=== PATIENT | male | born 1965 | race Caucasian/White ===

== ENCOUNTER 2017-02-26 07:19 | Inpatient (IN) | payer BC, OTHER ==
[~2017-02-26] VITALS: Ht 180.3 cm; Wt 83.9 kg
[2017-02-28 02:00] VITALS: BP 114/67; TEMP 98
--- NOTE | 2017-02-28 02:00 | NUR ---
PRE-ADMISSION PATIENT SEEN IN INTAKE. PATIENT ALERT AND ORIENTED X 4. RESPIRATION EVEN AND UNLABORED . PATIENT STATES HE'S ALLERGIC TO POLLEN AND NO ALLERGY TO FOOD.VS CHECK DONE . VS BP- 114/67 P-102 T-98.0 R-17 PA-6/10 BACK PAIN. SpO2 AT 94% ON RA. PATIENT AMBULATORY. PATIENT NOTED ANXIOUS. WILL CONTINUE ADMISSION PROCESS.
[2017-02-28] MEDS ORDERED: LORAZEPAM 2 MG/1 ML VIAL IM PRN (02:15)
[2017-02-28] MEDS ORDERED: ACETAMINOPHEN 325 MG TABLET PO PRN (02:15)
[2017-02-28] MEDS ORDERED: diphenhydrAMINE 50 MG CAPSULE PO PRN (02:15)
[2017-02-28] MEDS ORDERED: IBUPROFEN 400 MG TABLET PO PRN (02:15)
[2017-02-28] MEDS ORDERED: LOPERAMIDE HCL 2 MG CAPSULE PO PRN ×2 (02:15)
[2017-02-28] MEDS ORDERED: LORAZEPAM 1 MG TABLET PO PRN ×2 (02:15)
[2017-02-28] MEDS ORDERED: CLONIDINE HCL 0.1 MG TABLET PO PRN (02:15)
[2017-02-28] MEDS ORDERED: MAG HYDROX/AL HYDROX/SIMETH 30 ML LIQUID UDC PO PRN (02:15)
[2017-02-28] MEDS ORDERED: HYDROXYZINE PAMOATE 25 MG CAPSULE PO PRN (02:15)
[2017-02-28] MEDS ORDERED: MIRALAX 17 GM POWD.PACK PO PRN (02:15)
[2017-02-28] MEDS ORDERED: ONDANSETRON 4 MG/2 ML VIAL IM PRN (02:15)
[2017-02-28] MEDS ORDERED: THIAMINE HCL 200 MG/2 ML VIAL IM ONE (02:15)
[2017-02-28] MEDS ORDERED: DICYCLOMINE HCL 20 MG TABLET PO PRN (02:15)
[2017-02-28] MEDS ORDERED: BUPRENORPHINE HCL 2 MG TAB.SUBL SL PRN (02:15)
[2017-02-28] MEDS ORDERED: MAGNESIUM HYDROXIDE 30 ML LIQUID UDC PO PRN (02:15)
--- NOTE | 2017-02-28 02:15 | NUR ---
ADMISSION NOTE PATIENT IN THE UNIT AT THIS TIME. PATIENT IS A 51 YEAR OLD MALE [facility]IOID DEPENDENCE. BODY CHECK DONE. SKIN NOTED WITH ABRASION WITH SCABS ON RIGHT ARM. NO BLEEDING NOTED, APPEARS TO BE HEALING. PATIENT NOTED WITH NON- PRODUCTIVE COUGH. LUNGS CLEAR AND BOWEL SOUNDS ACTIVE. ABDOMEN SOFT AND NON-DISTENDED. HEIGHT IS 5'11 AND WEIGHT IS 185 LBS. UDS NOT YET PROVIDED. PATIENT REQUESTED TO BE FULL CODE AND ON REGULAR DIET. 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 PATIENT IS THE SOURCE OF INFORMATION . PATIENT'S DRUG OF CHOICE ARE FF: 1.ALCOHOL (VODKA)-SINCE 13 YEARS OLD. DRINKS 1 PINT OF VODKA DAILY FOR 1 YEAR AND 2 MONTHS. LAST DRINK WAS 12 PACK OF BEERS 02/27/17. 2.HYDROCODONE/ACETAMINOPHEN 10/325-SINCE 21 YEARS OLD- TAKES 4 TABS DAILY FOR 2 YEARS. LAST USE WAS 2 TABS ON ON 02/27/17 3.METHAMPHETAMINE IV-SINCE 21 YEARS OLD. PATIENT INJECTS 1 GRAM FOR A YEAR. LAST USE WAS 1 GRAM ON 02/25/17 4.ROXYCODONE - TAKES OCCASIONALLY SINCE 21 YEARS OLD. LAST USE DATE AND AMOUNT "UNABLE TO RECALL" TREATMENT HISTORY 1.[employer] AT [facility] IN 2014 FOR 3 MONTHS PATIENT REPORT PMH OF ANXIETY, DEPRESSION, LIVER CIRRHOSIS , FELL FROM [address]TH FLOOR IN [place] ON December AND RIGHT SHOULDER SURGERY. NO SEIZURE HISTORY . PATIENT 'S PCP IS DR. DEE BRADFORD.PATIENT BROUGHT HOME MEDS , RECONCILED. PATIENT ANXIOUS, COMPLAINING OF BACK PAIN, NOTED WITH SLIGHT TREMORS, HOT AND COLD SWEATS, CHILLS.CIWA 6 AND COWS 5. PATIENT PLACED ON FALL/SEIZURE PRECAUTION. WILL CALL MD AND WILL GIVE DETAIL REPORT. PATIENT ORIENTED TO SURROUNDINGS AND HOW TO USE CALL LIGHT. SAFETY MEASURES IN PLACE. CALL LIGHT IN REACH. WILL CONTINUE TO MONITOR.
[2017-02-28] MEDS: METHOCARBAMOL 750 MG TABLET PO PRN (03:35)
[2017-02-28] MEDS ORDERED: METHOCARBAMOL 750 MG TABLET ONE (03:40)
[2017-02-28] MEDS ORDERED: TRAZODONE HCL50 MG PO (03:55)
[2017-02-28] MEDS ORDERED: DICLOFENAC SODI75 M1 PO (03:55)
[2017-02-28] MEDS ORDERED: NORCO 10-325 T1 EACH PO (03:55)
[2017-02-28] MEDS ORDERED: MELOXICAM15 MG PO (03:55)
[2017-02-28] MEDS ORDERED: BUPROPION XL300 MG PO (03:55)
[2017-02-28] MEDS ORDERED: TIZANIDINE HCL4 MG PO (03:55)
[2017-02-28] MEDS ORDERED: SEROQUEL400 MG PO (03:55)
--- NOTE | 2017-02-28 03:55 | NUR ---
THIAMINE INJECTION AND PRN ROBAXIN ADMINISTRATION PATIENT C/O BACK PAIN 04/20. PRN ROBAXIN GIVEN. WILL MONITOR FOR EFFECTIVENESS. THIAMINE INJECTION GIVEN ON RIGHT DELTOID
[2017-02-28] MEDS ORDERED: CORTIZONE 1028 GM TP (03:56)
[2017-02-28 04:00] VITALS: BP 105/67; TEMP 98.2
--- NOTE | 2017-02-28 04:55 | NUR ---
FILI BABCOCK RE-ASSESSMENT PATIENT IN BED ASLEEP. NO S/S OF DISTRESS. NO FACIAL GRIMACING. WILL CONTINUE TO MONITOR.
--- NOTE | 2017-02-28 07:15 | NUR ---
END OF SHIFT NOTE PATIENT IS A 51 YEAR OLD MALE NEWLY ADMITTED FOR ETOH/OPIOID/METH DEPENDENCE. PATIENT IS FULL CODE, REGULAR DIET AND ALLERGIC TO POLLEN. PATIENT SLEPT 2 HOURS. FLUID INTAKE OF 120 ML. VOIDED X 0 . NO BM. PATIENT PROVIDED O2 AT 2L/MIN FOR O2 SAT 92%. NO SOB. NOTED WITH NON PRODUCTIVE COUGH, LUNG CLEAR. LAST COWS 3 AND CIWA 4. PRN ROBAXIN GIVEN AT 0335 AND THIAMINE INJECTION GIVEN ON RIGHT DELTOID. ENDORSED TO DAY SHIFT NURSE, PERTINENT INFORMATION. ON FALL/SEIZURE PRECAUTION. SAFETY MEASURES IN PLACE. CALL LIGHT IN REACH. WILL CONTINUE TO MONITOR
--- NOTE | 2017-02-28 07:30 | NUR ---
STAR OF SHIFT Rcvd endorsement from night nurse, Client is in bed, he is A/Ox4, he is on O2 2LPM via NC with spO2 @ 97%, he presents with depresses mood, flat affect. He reports abdominal crams, cold chills, and anxiety, tremors felt not observed, he denies any N/V/D or headache. He has PRN medications to manage withdrawal symptoms, taper to help manage symptoms of withdrawal. PRN Robaxin for generalized body aches, noted effective. Last COWS 3 @ 0400. He has a linear dry scar on R F/A no tx needed. Seizure precaution. Side rails x 2 up/padded. Call light within reach. Will continue plan of care.
[2017-02-28 08:35] VITALS: BP 111/63; TEMP 97.3
[2017-02-28] MEDS ORDERED: TUBERCULIN,PURIF.PROT.DERIV. 5 TU/0.1 ML TEST ID ONE (09:00)
[2017-02-28] MEDS: MULTIVITAMINS,THERAPEUTIC TABLET PO SCH (09:43)
[2017-02-28] MEDS: FOLIC ACID 1 MG TABLET PO SCH (09:43)
[2017-02-28] MEDS: GABAPENTIN 300 MG CAPSULE PO SCH ×2 (09:43→15:00)
[2017-02-28] MEDS: THIAMINE HCL 100 MG TABLET PO SCH (09:43)
[2017-02-28] MEDS: LORAZEPAM 1 MG TABLET PO SCH ×4 (09:43→22:10)
--- NOTE | 2017-02-28 09:44 | NUR ---
TB TEST ADMINISTERED TO LEFT F/A, CLIENT TOLERATED WELL.
[2017-02-28] MEDS: DICLOFENAC 75 MG TABLET.DR PO SCH ×2 (11:16→18:44)
[2017-02-28 12:55] VITALS: BP 113/74; TEMP 98.5
--- NOTE | 2017-02-28 13:45 | NUR ---
Ativan 2mg held, client is too sedated, R 16, even and non-labored. Dr. Bennett notified.
[2017-02-28 16:55] VITALS: BP 113/81; TEMP 98.5
--- NOTE | 2017-02-28 19:15 | NUR ---
START OF SHIFT Received 51 year old male patient admitted on 02/28/17 for ETOH, Hydrocodone, Methamphetamine and occasional use of Roxycodone. Pt reports a PMHx of anxiety, depression, liver cirrhosis (3 years ago) and right shoulder surgery. He reports drinking alcohol ( vodka) 1 pint daily for 1.5 years. Last dose was 12 pack of beer on 02/27/17. Hydrocodone 10/325 mg (4 tabs) daily for 2 years. Last dose 2 tabs on 02/27/17. Methamphetamine IV 1 gram daily for 1 year. Last dose was 1 gram on 02/25/17. And Roxycodone ocasionally. Pt unable to recall. Pt denies history of seizure. Pt is receiving 5 day Ativan taper and tolerating well. Per endorsement, pt's SpO2 decreases while pt is asleep. Pt with order for O2 therapy. Pt is alert and oriented x4. Breathing is even and unlabored. Pt is safe with bed locked in lowest position, side rails up x2 and call light within reach. Will continue to monitor.
--- NOTE | 2017-02-28 19:26 | NUR ---
END OF SHIFT Endorsed to incoming nurse, client is in bed, he is A/Ox4. He reports cold chills, and anxiety, tremors felt not observed, he denies any N/V/D or headache. He started 5 day Ativan taper, tolerating well. Last COWS 4, CIWA 7 @ 0400. He has a linear dry scar on R F/A no tx needed. Adequate intake and output. Seizure precaution. Side rails x 2 up/padded. Call light within reach. Will continue plan of care.
[2017-02-28 20:00] VITALS: BP 107/82; TEMP 98
[2017-02-28] MEDS ORDERED: GABAPENTIN 300 MG CAPSULE PO SCH (21:00)
[2017-02-28] MEDS: TRAZODONE 50 MG TABLET PO PRN (22:15)
--- NOTE | 2017-02-28 22:15 | NUR ---
PRN TRAZODONE Pt reports inability to fall asleep. PRN Trazodone administered as ordered. Breathing even and unlabored, safety measures in place. Will monitor effectiveness.
[2017-02-28] MEDS: ONDANSETRON ODT 4 MG TAB.RAPDIS SL PRN (22:40)
--- NOTE | 2017-02-28 22:40 | NUR ---
PRN ZOFRAN Pt complains of nausea with no episode of vomiting. PRN Zofran administered as ordered. Breathing is even and unlabored, safety measures in place. Will monitor effectiveness.
--- NOTE | 2017-02-28 23:15 | NUR ---
PRN TRAZODONE REASSESSMENT PRN medication effective. Pt lying comfortably in bed with eyes closed and is noted to be asleep. Respirations 16, breathing even and unlabored. Safety measures in place. Will monitor.
--- NOTE | 2017-02-28 23:40 | NUR ---
PRN ZOFRAN REASSESSMENT PRN medication effective. Pt lying in bed with eyes closed noted to be asleep. No facial grimacing noted. Breathing even and unlabored, safety measures in place. Will continue to monitor.
[2017-03-01] VITALS: BP 105/66; TEMP 98
--- NOTE | 2017-03-01 | NUR ---
COWS/CIWA COWS/CIWA deferred. Pt lying in bed with eyes closed noted to be asleep. Breathing is even and unlabored, respirations 16. Safety measures in place. Will monitor.
[2017-03-01 04:00] VITALS: BP 110/63; TEMP 98
--- NOTE | 2017-03-01 04:00 | NUR ---
COWS/CIWA COWS/CIWA deferred. Pt lying in bed with eyes closed noted to be asleep. Breathing is even and unlabored, respirations 16, SpO2: 96% on RA. Safety measures in place. Will monitor.
--- NOTE | 2017-03-01 07:16 | NUR ---
END OF SHIFT Pt is a 51 year old male patient admitted on 02/28/17 for ETOH, Hydrocodone, Methamphetamine and occasional use of Roxycodone. Pt reports a PMHx of anxiety, depression, liver cirrhosis (3 years ago) and right shoulder surgery. Pt is currently receiving 5 day Ativan taper and tolerating well. At 2215 he received PRN Trazodone, at 2240 he received PRN Zofran. He slept a total of 9hrs, Intake: 3665 mL, Void: x1, BM: x1, COWS: 4, CIWA: 6. Pt remains alert and oriented x4. Breathing is even and unlabored. Pt is safe with bed locked in lowest position, side rails up x2 and call light within reach. Endorsed to oncoming shift.
[2017-03-01 08:00] VITALS: BP 103/69; TEMP 98
--- NOTE | 2017-03-01 08:02 | NUR ---
STAR OF SHIFT Client is in bed, he is A/Ox4, he presents with depresses mood, flat affect. He is fully ambulatory reports sweats, cold chills, restless legs and abdominal crams, tremors felt not observed, he denies any N/V/D. He denies any hallucinations or SI/HI. Rcvd endorsement from night nurse indicating that last night client's gait was unsteady, PRN Trazodone for inability to sleep, noted effective he slept 9hrs. He is on day 2 of 5 of Ativan taper to facilitate detox treatment. Encouraged fluid intake as tolerated. Encourage to attend group therapy improve coping skills. Last COWS 4/CIWA 6 @ 1999. Client's linear dry scar on R F/A intact. Seizure precaution. Side rails x 2 up/padded. Call light within reach. Will continue plan of care.
[2017-03-01] MEDS: MULTIVITAMINS,THERAPEUTIC TABLET PO SCH (08:32)
[2017-03-01] MEDS: DICLOFENAC 75 MG TABLET.DR PO SCH ×2 (08:32→17:08)
[2017-03-01] MEDS: GABAPENTIN 300 MG CAPSULE PO SCH ×3 (08:32→21:28)
[2017-03-01] MEDS: FOLIC ACID 1 MG TABLET PO SCH (08:32)
[2017-03-01] MEDS: THIAMINE HCL 100 MG TABLET PO SCH (08:32)
[2017-03-01] MEDS: LORAZEPAM 1 MG TABLET PO SCH ×3 (08:32→21:27)
[2017-03-01] MEDS: ONDANSETRON ODT 4 MG TAB.RAPDIS SL PRN (12:16)
--- NOTE | 2017-03-01 12:16 | NUR ---
PRN Zofran Client reports an episode of emesis and intermittent nausea, he denies any [place]. Zofran 4mg SL administered. Offered saltine crackers and felicita ann. Call light within reach. Will continue to monitor.
[2017-03-01 12:25] VITALS: BP 135/95; TEMP 98
[2017-03-01] MEDS ORDERED: Medication Not On Formulary EA (Bupropion Hcl (Bupropion Xl) 1 TAB) PO SCH (12:30)
[2017-03-01] MEDS: buPROPion XL 150 MG TAB.SR.24H PO SCH (13:14)
--- NOTE | 2017-03-01 13:14 | NUR ---
PRN Imodium 4mg Client reports loose stool x 2, Imodium 4mg PO administered. Encouraged to increase fluid intake as tolerated. Ritika ann and water at bedside. Call light within reach.
--- NOTE | 2017-03-01 13:16 | NUR ---
Reassessment PRN Gordy Client states "No more vomiting and I feel a lot better from the nausea, thank you." Zofran 4mg effective. Call light within reach. Will continue to monitor.
--- NOTE | 2017-03-01 13:35 | NUR ---
Client was encouraged to continue to come to groups. He attended morning group but reports he feels nauseous at the moment but will do his best.
--- NOTE | 2017-03-01 14:14 | NUR ---
Reassessment PRN Imodium 4mg Client denies any more bowel movements. Imodium 4mg effective. Encouraged to increase fluid intake as tolerated. Call light within reach.
[2017-03-01 16:55] VITALS: BP 125/83; TEMP 98.4
--- NOTE | 2017-03-01 19:15 | NUR ---
START OF SHIFT Received 51 year old male patient admitted on 02/28/17 for ETOH, Hydrocodone, Methamphetamine and occasional use of Roxycodone. Pt reports a PMHx of anxiety, depression, liver cirrhosis (3 years ago) and right shoulder surgery. He reports drinking alcohol ( vodka) 1 pint daily for 1.5 years. Last dose was 12 pack of beer on 02/27/17. Hydrocodone 10/325 mg (4 tabs) daily for 2 years. Last dose 2 tabs on 02/27/17. Methamphetamine IV 1 gram daily for 1 year. Last dose was 1 gram on 02/25/17. And Roxycodone occasionally. Pt unable to recall. Pt denies history of seizure. Pt is receiving 5 day Ativan taper and tolerating well. Per endorsement, pt received PRN Zofran, Imodium and Tylenol. Pt is alert and oriented x4. Breathing is even and unlabored. Pt is safe with bed locked in lowest position, side rails up x2 and call light within reach. Will continue to monitor.
--- NOTE | 2017-03-01 19:16 | NUR ---
PRN Tylenol 650mg Client reports L upper toothache, 03/21. Tylenol 650mg Po administered. Primary notice client jamming toothbrush in his mouth attempting to self remove painful tooth. Ask client to refrain from hurting himself with the toothbrush, he promised to stop. Charge nurse and incoming nurse notified. Incoming nurse to reassess effectiveness of medication. Call light within reach.
--- NOTE | 2017-03-01 19:17 | NUR ---
END OF SHIFT Endorsed to incoming nurse, client is in bed, he is A/Ox4. He reports left upper toothache /, Tylenol administered and primary nurse to reassess. He presents with anxious mood, tremors felt not observed, he denies any N/V/D or headache. PRN Zofran for emesis x 1 and Imodium for diarrhea, noted effective. He is on 2nd of 5 day Ativan taper, tolerating well. Last COWS 3, CIWA 3 @ 1600. He has a linear dry scar on R F/A no tx needed. Adequate intake and output. Seizure precaution. Side rails x 2 up/padded. Call light within reach. Will continue plan of care.
[2017-03-01 20:00] VITALS: BP 133/80; TEMP 98
--- NOTE | 2017-03-01 20:16 | NUR ---
PRN TYLENOL REASSESSMENT Pt reports tylenol somewhat effective. Pain 4/10. Breathing even and unlabored, safety measures in place. Will continue to monitor.
[2017-03-01] MEDS ORDERED: QUETIAPINE FUMARATE 200 MG TABLET PO SCH (21:00)
[2017-03-01] MEDS ORDERED: LIDOCAINE VISCUS 2% 15 ML UDC MM PRN (21:00)
[2017-03-02] VITALS: BP 115/82; TEMP 98
[2017-03-02 04:00] VITALS: BP 112/62; TEMP 98
--- NOTE | 2017-03-02 04:00 | NUR ---
COWS/CIWA COWS/CIWA deferred. Pt lying in bed with eyes closed noted to be asleep. Breathing is even and unlabored, respirations 16. Safety measures in place. Will continue to monitor.
--- NOTE | 2017-03-02 07:15 | NUR ---
END OF SHIFT Pt is a 51 year old male patient admitted on 02/28/17 for ETOH, Hydrocodone, Methamphetamine and occasional use of Roxycodone. Pt reports a PMHx of anxiety, depression, liver cirrhosis (3 years ago) and right shoulder surgery. Pt is receiving 5 day Ativan taper and tolerating well. Per endorsement, pt received PRN Zofran, Imodium and Tylenol. Pt is alert and oriented x4. Breathing is even and unlabored. Pt is safe with bed locked in lowest position, side rails up x2 and call light within reach. Endorsed to oncoming shift.
[2017-03-02 08:00] VITALS: BP 135/101; TEMP 98.2
--- NOTE | 2017-03-02 08:10 | NUR ---
START OF SHIFT Received pt this AM Aox3. Patient presents restless and anxious. Patient c/o feeling woozy, sweaty, and having body aches. Patient on 5 day Ativan taper. Patient has abrasion to right arm. He slept 8 hours. No PRNs given during the night. COWS 6 CIWA 10 at 0800. Vital signs stable. Patient verbalized wanting to attend groups and activities this shift. Encouraged increase in fluid intake. Will provide safe and supportive environment. Will continue to monitor.
[2017-03-02] MEDS: DICLOFENAC 75 MG TABLET.DR PO SCH ×2 (08:32→17:21)
[2017-03-02] MEDS: FOLIC ACID 1 MG TABLET PO SCH (08:32)
[2017-03-02] MEDS: THIAMINE HCL 100 MG TABLET PO SCH (08:33)
[2017-03-02] MEDS: GABAPENTIN 300 MG CAPSULE PO SCH ×3 (08:33→20:47)
[2017-03-02] MEDS: LORAZEPAM 1 MG TABLET PO SCH ×4 (08:33→20:46)
[2017-03-02] MEDS: MULTIVITAMINS,THERAPEUTIC TABLET PO SCH (08:33)
[2017-03-02] MEDS: buPROPion XL 150 MG TAB.SR.24H PO SCH (08:33)
[2017-03-02 12:00] VITALS: BP 117/90; TEMP 97.9
--- NOTE | 2017-03-02 12:48 | NUR ---
PRN MEDS Viscous Lidocaine given for c/o toothache. Pain 9/10 on pain scale. Will reassess
--- NOTE | 2017-03-02 13:15 | NUR ---
PRN REASSESSMENT Patient reports pain has decreased to 2/10. Will continue to monitor
[2017-03-02 16:00] VITALS: BP 148/92; TEMP 98.3
--- NOTE | 2017-03-02 18:36 | NUR ---
END OF SHIFT Patient continues on 5 day Ativan taper and tolerating well. Patient states his detox meds are effective, but he is feeling more tired than normal. Last COWS 6 CIWA 8. PRN Viscous Lidocaine given for tooth pain with effectiveness. TB test read and was negative. All needs met. Safety measures in place. Patient resting in room calmly with RR even and unlabored and call duran within reach. Will pass shift report to oncoming nurse.
--- NOTE | 2017-03-02 19:30 | NUR ---
START OF SHIFT Pt is a 51 year old male patient admitted on 02/28/17 for ETOH, Hydrocodone, Methamphetamine and occasional use of Roxycodone. Pt reports a PMH of anxiety, depression, liver cirrhosis, and right shoulder surgery. Pt is receiving 5 day Ativan taper and tolerating well. Pt is alert and oriented x4. Breathing is even and unlabored. Pt is safe with bed locked in lowest position, side rails up x2 and call light within reach,will be monitored for safety.
[2017-03-02 20:00] VITALS: BP 133/95; TEMP 98.1
[2017-03-02] MEDS: QUETIAPINE FUMARATE 200 MG TABLET PO SCH (20:46)
[2017-03-03] VITALS: BP 124/81; TEMP 98.6
[2017-03-03 04:00] VITALS: BP 128/89; TEMP 98.1
--- NOTE | 2017-03-03 07:01 | NUR ---
END OF SHIFT Pt is a 51 year old male patient admitted on 02/28/17 for ETOH, Hydrocodone, Methamphetamine and occasional use of Roxycodone. Pt reports a PMH of anxiety, depression, liver cirrhosis, and right shoulder surgery. Pt is receiving 5 day Ativan taper and tolerating well. Pt is alert and oriented x4. Breathing is even and unlabored. No PRN meds given last night.Pt slept 9 hrs,fluid intake was 295 mls,voided x 1 . Pt is safe with bed locked in lowest position, side rails up x2 and call light within reach,will be monitored for safety.
--- NOTE | 2017-03-03 07:39 | NUR ---
Start of shift note; Received report from night nurse. Patient is a 51 year old male admitted on 02/28/17 for ETOH dependence. Patient was placed on a 5 day Ativan taper, no adverse reactions noted. Patient reported history of anxiety, depression, liver cirrhosis, right shoulder surgery. Patient is on full code status, regular diet allergic to pollen. Patient is on fall and seizure precaution. Bed in lowest position, call light within reach. Will continue to monitor patient.
[2017-03-03 08:00] VITALS: BP 130/76; TEMP 97.8
[2017-03-03] MEDS: GABAPENTIN 300 MG CAPSULE PO SCH ×3 (08:01→20:45)
[2017-03-03] MEDS: THIAMINE HCL 100 MG TABLET PO SCH (08:01)
[2017-03-03] MEDS: buPROPion XL 150 MG TAB.SR.24H PO SCH (08:01)
[2017-03-03] MEDS: FOLIC ACID 1 MG TABLET PO SCH (08:01)
[2017-03-03] MEDS: DICLOFENAC 75 MG TABLET.DR PO SCH ×2 (08:01→17:14)
[2017-03-03] MEDS: MULTIVITAMINS,THERAPEUTIC TABLET PO SCH (08:01)
[2017-03-03] MEDS: LORAZEPAM 1 MG TABLET PO SCH ×3 (08:01→20:45)
[2017-03-03 12:00] VITALS: BP 127/72; TEMP 97.8
--- NOTE | 2017-03-03 12:00 | NUR ---
MD communication; Dr. Bennett notified of patient's Hep C result, MD to educate patient.
[2017-03-03 16:00] VITALS: BP 130/98; TEMP 97.9
--- NOTE | 2017-03-03 18:38 | NUR ---
End of shift note; Patient is AOX4. Patient is a 51 year old male admitted on 02/28/17 for ETOH dependence. Patient was placed on a 5 day Ativan taper, no adverse reactions noted. Patient reported history of anxiety, depression, liver cirrhosis, right shoulder surgery. Patient is on full code status, regular diet allergic to pollen. Patient is on fall and seizure precaution. Patient remained compliant with treatment plan. Medications were effective in reducing withdrawal symptoms. Bed in lowest position, call light within reach. Met all needs.
--- NOTE | 2017-03-03 19:30 | NUR ---
START OF SHIFT Pt is a 51 year old male patient admitted on 02/28/17 for ETOH, Hydrocodone, Methamphetamine and occasional use of Roxycodone. Pt reports a PMH of anxiety, depression, liver cirrhosis, and right shoulder surgery. Pt is receiving 5 day Ativan taper and tolerating well. Pt is alert and oriented x4. Breathing is even and unlabored. Patient is on full code status, regular diet allergic to pollen. Patient is on fall and seizure precaution. Pt is safe with bed locked in lowest position, side rails up x2 and call light within reach,will be monitored for safety.
[2017-03-03 20:00] VITALS: BP 133/86; TEMP 98.2
[2017-03-03] MEDS: QUETIAPINE FUMARATE 200 MG TABLET PO SCH (20:45)
[2017-03-04] VITALS: BP 120/82; TEMP 98.3
--- NOTE | 2017-03-04 04:00 | NUR ---
PT REFUSED V/S.COWS/CIWA DEFERRED. PT SEEN SLEEPING COMFORTABLY IN BED.BREATHING IS EVEN AND NON LABORED.NO S/S OF DISTRESS NOTED.WILL BE MONITORED FOR SAFETY.
--- NOTE | 2017-03-04 06:43 | NUR ---
END OF SHIFT Pt is a 51 year old male patient admitted on 02/28/17 for ETOH, Hydrocodone, Methamphetamine and occasional use of Roxycodone. Pt reports a PMH of anxiety, depression, liver cirrhosis, and right shoulder surgery. Pt is receiving 5 day Ativan taper and tolerating well. Pt is alert and oriented x4. Breathing is even and unlabored. Patient is on full code status, regular diet allergic to pollen. Patient is on fall and seizure precaution.No PRN meds given,Pt slept 9 hrs,fluid intake was 1401 mls,voided x 2. Pt is safe with bed locked in lowest position, side rails up x2 and call light within reach,will be monitored for safety.
--- NOTE | 2017-03-04 07:42 | NUR ---
BEGINNING OF SHIFT Patient endorsement report received from aviation project manager nurse, all pertinent information discussed. patient is a 51 year old male admitted on 02/28/2017 with admitting Dx: etoh/opiate dependence. Patient currently on a 5 day Ativan taper as ordered, and is scheduled to begin day 4 of taper. per nights shift patient received no PRN medications. Patient with last cow score of: 1 and last ciwa score of: 1. Patient slept for 9. hours. Patient received awake, alert and oriented x4, educated regarding plan of care for the day and medication regimen. safety measures in place. call light kept with in reach, will continue to monitor.
[2017-03-04] MEDS: THIAMINE HCL 100 MG TABLET PO SCH (08:58)
[2017-03-04] MEDS: buPROPion XL 150 MG TAB.SR.24H PO SCH (08:58)
[2017-03-04] MEDS: DICLOFENAC 75 MG TABLET.DR PO SCH ×2 (08:58→17:13)
[2017-03-04] MEDS: FOLIC ACID 1 MG TABLET PO SCH (08:58)
[2017-03-04] MEDS: GABAPENTIN 300 MG CAPSULE PO SCH ×3 (08:58→21:14)
[2017-03-04] MEDS: MULTIVITAMINS,THERAPEUTIC TABLET PO SCH (08:59)
[2017-03-04] MEDS: LORAZEPAM 1 MG TABLET PO SCH ×2 (08:59→21:15)
[2017-03-04 09:00] VITALS: BP 126/85; TEMP 98.4
[2017-03-04] MEDS ORDERED: CYANOCOBALAMIN 1000 MCG/ML VIAL IM ONE (12:00)
[2017-03-04 13:06] VITALS: BP 130/82; TEMP 98.4
[2017-03-04 17:00] VITALS: BP 149/87; TEMP 98.4
--- NOTE | 2017-03-04 18:51 | NUR ---
END OF SHIFT Patient alert and oriented x4, vital signs stable during shift. Patient with admitting Dx: ETOH/opiate dependence. Patient continues on 5 day Ativan taper as ordered. Continues on day 4 of taper, well tolerated, no ASE noted. 0900 assessment patient presented with: anxiety, barely sweating, c/o chills and mild bone and joint aches with cow score of: 5 and ciwa score of: 2. 1300 assessment patient presented with: anxiety, barely sweating, c/o chills and mild bone and joint aches with cow score of: 5 and ciwa score of: 2. 1700 assessment patient presented with: mild bone and joint aches, and anxiety with cow score of: 2 and ciwa score of: 4. Patient was administered no PRNs Patient encouraged adequate PO fluid intake as tolerated. Encouraged to attend group therapies/sessions to learn new coping skills to prevent relapse, noted attending and participating denies any SI/HI. Safety measures in place. call light kept with in reach. all needs met and rendered. patient endorsed to shiftman nurse, all pertinent information discussed. Addendum: 03/04/17 at 1855 by COOPER REGALADO LVN Patient was administered a one time dose of B12 injection as ordered during shift, well tolerated.
--- NOTE | 2017-03-04 19:15 | NUR ---
START OF SHIFT Received 51 year old male patient admitted on 02/28/17 for ETOH, Hydrocodone, Methamphetamine and occasional use of Roxycodone. Pt reports a PMHx of anxiety, depression, liver cirrhosis (3 years ago) and right shoulder surgery. He reports drinking alcohol ( vodka) 1 pint daily for 1.5 years. Last dose was 12 pack of beer on 02/27/17. Hydrocodone 10/325 mg (4 tabs) daily for 2 years. Last dose 2 tabs on 02/27/17. Methamphetamine IV 1 gram daily for 1 year. Last dose was 1 gram on 02/25/17. And Roxycodone occasionally. Pt unable to recall. Pt denies history of seizure. Pt is currently receiving 5 day Ativan taper and tolerating well. Per endorsement, pt received B12 shot, and did not receive or request PRN medications. Pt is alert and oriented x4. Breathing is even and unlabored. Pt is safe with bed locked in lowest position, side rails up x2 and call light within reach. Will continue to monitor.
[2017-03-04 20:00] VITALS: BP 174/93; TEMP 98.1
[2017-03-04] MEDS: QUETIAPINE FUMARATE 200 MG TABLET PO SCH (21:14)
[2017-03-05] VITALS: BP 122/84; TEMP 98
--- NOTE | 2017-03-05 | NUR ---
COWS/CIWA COWS/CIWA deferred d/t pt lying in bed with eyes closed noted to be asleep. Respirations 16, breathing even and unlabored. Safety measures in place. Will continue to monitor.
--- NOTE | 2017-03-05 04:00 | NUR ---
VITALS REFUSED/ COW, CIWA DEFERRED 0400 vitals refused by pt. COWS and CIWA deferred d/t pt lying in bed with eyes closed, and is asleep and unable to assess. Respirations 16, breathing is even and unlabored. Safety measures in place. Will continue to monitor.
--- NOTE | 2017-03-05 07:07 | NUR ---
END OF SHIFT Pt is a 51 year old male patient admitted on 02/28/17 for ETOH, Hydrocodone, Methamphetamine and occasional use of Roxycodone. Pt reports a PMHx of anxiety, depression, liver cirrhosis (3 years ago) and right shoulder surgery. Pt is currently receiving 5 day Ativan taper and tolerating well. Pt did not receive or request PRN medications. He slept a total of 8 hrs, Intake: 592 mL Void:x2 BM:0 COWS:2, CIWA:3. Pt remains alert and oriented x4. Breathing is even and unlabored. Pt is safe with bed locked in lowest position, side rails up x2 and call light within reach. Endorsed to oncoming shift.
--- NOTE | 2017-03-05 07:08 | NUR ---
Start of Shift Notes: Received patient in his room. Alert and oriented x 4. Verbally responsive. Able to make his needs known. No changes in LOC noted. Breathing even and unlabored. No SOB noted. Skin warm and dry to touch. Abdomen soft and non-distended with (+) BS in all 4 quadrants. No complains of N/V/D or constipation noted. Noted with complains of abdominal cramping. Bladder non-distended. No complains of dysuria noted. Voids independently. Ambulatory ad mitesh with steady gait. Patient is a 51 year old male admitted for ETOH, opiate, meth dependence who was placed on a 5-day Ativan taper as ordered. No adverse reactions noted. Has past medical hx of anxiety, depression, liver cirrhosis, fall, and right shoulder surgery. On fall and seizure precautions. NKDA. FULL CODE. Regular diet. Educated patient on the current plan of care for the day and the medication regimen. Encouraged oral fluid intake and encouraged group participation to learn new skills to prevent relapse. Will continue to monitor closely.
[2017-03-05 08:00] VITALS: BP 146/91; TEMP 98.1
[2017-03-05] MEDS: THIAMINE HCL 100 MG TABLET PO SCH (08:37)
[2017-03-05] MEDS: buPROPion XL 150 MG TAB.SR.24H PO SCH (08:37)
[2017-03-05] MEDS: GABAPENTIN 300 MG CAPSULE PO SCH ×3 (08:37→21:04)
[2017-03-05] MEDS: MULTIVITAMINS,THERAPEUTIC TABLET PO SCH (08:37)
[2017-03-05] MEDS: METHOCARBAMOL 750 MG TABLET PO PRN (08:37)
[2017-03-05] MEDS: FOLIC ACID 1 MG TABLET PO SCH (08:37)
--- NOTE | 2017-03-05 08:37 | NUR ---
Robaxin 750 mg PO given: Patient noted with complains of right shoulder 5/10 pain. Heat packs provided with no help. Medicated patient with Robaxin 750 mg PO as ordered. Will monitor for effectiveness.
[2017-03-05] MEDS: DICLOFENAC 75 MG TABLET.DR PO SCH ×2 (08:51→17:11)
--- NOTE | 2017-03-05 09:37 | NUR ---
Re-assessment: Per patient, PRN Robaxin was effective in reducing his right shoulder pain. PL 12/19.
[2017-03-05 12:00] VITALS: BP 139/92; TEMP 98
[2017-03-05] MEDS ORDERED: Gabapentin PO (12:40)
[2017-03-05] MEDS ORDERED: HYDROXYZINE PAM25 M1 PO (12:40)
[2017-03-05] MEDS ORDERED: ROBAXIN750 MG PO (12:40)
[2017-03-05] MEDS ORDERED: SEROQUEL200 MG PO (12:40)
[2017-03-05] MEDS ORDERED: Acetaminophen PO (12:40)
[2017-03-05] MEDS ORDERED: FAMOTIDINE20 M1 PO (12:40)
[2017-03-05 16:00] VITALS: BP 165/104; TEMP 98.3
--- NOTE | 2017-03-05 17:17 | NUR ---
Clonidine 0.1mg PO given: Patient's BP 165/104. Denies any headache, dizziness, blurred vision, chest pain or chest tightness. Medicated patient with Clonidine 0.1mg PO as ordered. Discouraged smoking. Patient verbalized understanding of risks and consequences but patient still insisted on smoking.
[2017-03-05 18:17] VITALS: BP 145/96
--- NOTE | 2017-03-05 18:17 | NUR ---
Re-assessment: Patient's BP checked. BP 145/96.
--- NOTE | 2017-03-05 18:57 | NUR ---
End of Shift Notes: Patient is a 51 year old male admitted for ETOH/opiate and methamphetamine dependence who was placed on a 5-day Ativan taper that has been completed. Has past medical hx of anxiety, depression and cirrhosis. VS monitored closely q 4 hours. Withdrawal symptoms were closely monitored. Initial CIWA 3. Patient presented with anxiety. Able to be redirected with non-pharmacological interventions. Particpated in group and therapy sessions. Medicated patient with Robaxin 750 mg PO at 0837 for right shoulder pain with help after 1 hour. Clonidine 0.1mg PO was given at 1717 due to elevated BP with help after 1 hour. Patient will be discharging tomorrow. UDS in and resulted. All needs met and attended. Will continue to monitor closely.
--- NOTE | 2017-03-05 19:15 | NUR ---
START OF SHIFT Received 51 year old male patient admitted on 02/28/17 for ETOH, Hydrocodone, Methamphetamine and occasional use of Roxycodone. Pt reports a PMHx of anxiety, depression, liver cirrhosis (3 years ago) and right shoulder surgery. He reports drinking ETOH (vodka) 1 pint daily for 1.5 years. Last dose was 12 pack of beer on 02/27/17. Hydrocodone 10/325 mg (4 tabs) daily for 2 years. Last dose 2 tabs on 02/27/17. Methamphetamine IV 1 gram daily for 1 year. Last dose was 1 gram on 02/25/17. And Roxycodone occasionally. Pt unable to recall. Pt denies history of seizure. Pt completed his 5 day Ativan taper and is scheduled to be DC tomorrow. Per endorsement, pt received PRN clonidine d/t increased BP. PRN medication was effective. Pt is alert and oriented x4. Breathing is even and unlabored. Pt is safe with bed locked in lowest position, side rails up x2 and call light within reach. Will continue to monitor.
[2017-03-05 20:00] VITALS: BP 147/98; TEMP 98.5
[2017-03-05] MEDS: FAMOTIDINE 20 MG TABLET PO SCH (21:04)
[2017-03-05] MEDS: QUETIAPINE FUMARATE 200 MG TABLET PO SCH (21:04)
[2017-03-05] MEDS: TRAZODONE 50 MG TABLET PO PRN (21:29)
--- NOTE | 2017-03-05 21:29 | NUR ---
PRN TRAZODONE Pt complains of inability to fall asleep. PRN Trazodone administered as ordered. Breathing is even and unlabored. Safety measures in place. Will continue to monitor effectiveness.
--- NOTE | 2017-03-05 22:29 | NUR ---
PRN TRAZODONE REASSESSMENT PRN Trazodone effective. Pt lying in bed with eyes closed noted to be asleep. Respirations 16, breathing is even and unlabored. Safety measures in place. Will continue to monitor.
[2017-03-06] VITALS: BP 135/82; TEMP 98.5
--- NOTE | 2017-03-06 04:00 | NUR ---
COWS,CIWA DEFERRED/VITALS REFUSED 0400 vitals refused by pt. COWS and CIWA deferred d/t pt lying in bed with eyes closed, and is asleep. Respirations 16, breathing is even and unlabored. Safety measures in place. Will continue to monitor.
--- NOTE | 2017-03-06 07:30 | NUR ---
END OF SHIFT Pt is a 51 year old male patient admitted on 02/28/17 for ETOH, Hydrocodone, Methamphetamine and occasional use of Roxycodone. Pt completed his 5 day Ativan taper and is scheduled to be DC today (03/06/17) to [facility]. At 2128 he received PRN Trazodone. He slept a total of 6 hrs, Intake: 1150 mL Void:x2 BM:0 COWS: 0, CIWA:1. Pt remains alert and oriented x4. Breathing is even and unlabored. Pt is safe with bed locked in lowest position, side rails up x2 and call light within reach. Endorsed to oncoming shift.
[2017-03-06 08:00] VITALS: BP 137/88; TEMP 98.5
--- NOTE | 2017-03-06 08:21 | NUR ---
Start of Shift Notes: Received patient in his room. Alert and oriented x 4. Verbally responsive. Able to make his needs known. No changes in LOC noted. Breathing even and unlabored. No SOB noted. Skin warm and dry to touch. Abdomen soft and non-distended with (+) BS in all 4 quadrants. No complains of N/V/D or constipation noted. Noted with complains of abdominal cramping. Bladder non-distended. No complains of dysuria noted. Voids independently. Ambulatory ad mitesh with steady gait. Patient is a 51 year old male admitted for ETOH, opiate, meth dependence who was placed on a 5-day Ativan taper as ordered. No adverse reactions noted. Has past medical hx of anxiety, depression, liver cirrhosis, fall, and right shoulder surgery. On fall and seizure precautions. NKDA. FULL CODE. Regular diet. Educated patient on the discharge process. Verbalized understanding. Will continue to monitor closely.
[2017-03-06] MEDS: MULTIVITAMINS,THERAPEUTIC TABLET PO SCH (08:36)
[2017-03-06] MEDS: DICLOFENAC 75 MG TABLET.DR PO SCH (08:36)
[2017-03-06] MEDS: buPROPion XL 150 MG TAB.SR.24H PO SCH (08:37)
[2017-03-06] MEDS: THIAMINE HCL 100 MG TABLET PO SCH (08:37)
[2017-03-06] MEDS: FAMOTIDINE 20 MG TABLET PO SCH (08:37)
[2017-03-06] MEDS: GABAPENTIN 300 MG CAPSULE PO SCH (08:37)
[2017-03-06] MEDS: FOLIC ACID 1 MG TABLET PO SCH (08:37)
[2017-03-06] MEDS: METHOCARBAMOL 750 MG TABLET PO PRN (08:37)
--- NOTE | 2017-03-06 09:40 | NUR ---
Discharged: Patient left the unit at this time in stable condition. PRN Robaxin was given at 0837 with help after 1 hour. Patient denies any s/s of withdrawal. CIWA 0. Discharge instructions were provided to the patient. Education provided regarding his discharge instructions. All clothings, medications and valuables were returned to the patient in stable condition. Picked up by [facility] in stable condition to be transported to [facility].
== END 2017-03-06 09:40 | disposition other institution (70) | DRG 895 ==
LOC: SRC 02-28 01:32
PROVIDERS: ADMIT Internal Medicine; ATTEND Internal Medicine
DX: F10.230 Alcohol dependence with withdrawal, uncomplicated (principal); K85.20 Alcohol induced acute pancreatitis without necrosis or infection; F31.4 Bipolar disorder, current episode depressed, severe, without psychotic features; K70.30 Alcoholic cirrhosis of liver without ascites; F11.23 Opioid dependence with withdrawal; Y90.9 Presence of alcohol in blood, level not specified; F41.9 Anxiety disorder, unspecified; F17.210 Nicotine dependence, cigarettes, uncomplicated; F15.23 Other stimulant dependence with withdrawal; B19.20 Unspecified viral hepatitis C without hepatic coma

== ENCOUNTER 2017-04-29 09:10 | Inpatient (IN) | payer BC, OTHER ==
[~2017-04-29] VITALS: Ht 177.8 cm; Wt 93.0 kg
[~2017-04-29 09:10] MED LIST: Acetaminophen PO; BUPR300T54 PO; DICL75TA5 PO; FAMO20TA8 PO; Gabapentin PO; HYDR-3895 PO; HYDR28GE TP; MELO-107 PO; METH-33 PO; QUET200T PO; QUET400T PO; TIZA4TAB4 PO; TRAZ-144 PO
[2017-04-29] MEDS ORDERED: MAGNESIUM HYDROXIDE 30 ML LIQUID UDC PO PRN (14:45)
[2017-04-29] MEDS ORDERED: HYDROXYZINE PAMOATE 25 MG CAPSULE PO PRN (14:45)
[2017-04-29] MEDS ORDERED: CLONIDINE HCL 0.1 MG TABLET PO PRN (14:45)
[2017-04-29] MEDS ORDERED: ONDANSETRON ODT 4 MG TAB.RAPDIS SL PRN (14:45)
[2017-04-29] MEDS ORDERED: LORAZEPAM 1 MG TABLET PO PRN ×2 (14:45)
[2017-04-29] MEDS ORDERED: BUPRENORPHINE HCL 2 MG TAB.SUBL SL PRN (14:45)
[2017-04-29] MEDS ORDERED: diphenhydrAMINE 50 MG CAPSULE PO PRN (14:45)
[2017-04-29] MEDS ORDERED: MAG HYDROX/AL HYDROX/SIMETH 30 ML LIQUID UDC PO PRN (14:45)
[2017-04-29] MEDS ORDERED: THIAMINE HCL 200 MG/2 ML VIAL IM ONE (14:45)
[2017-04-29] MEDS ORDERED: LOPERAMIDE HCL 2 MG CAPSULE PO PRN ×2 (14:45)
[2017-04-29] MEDS ORDERED: MIRALAX 17 GM POWD.PACK PO PRN (14:45)
[2017-04-29] MEDS ORDERED: LORAZEPAM 2 MG/1 ML VIAL IM PRN (14:45)
[2017-04-29] MEDS ORDERED: ONDANSETRON 4 MG/2 ML VIAL IM PRN (14:45)
[2017-04-29] MEDS ORDERED: DICYCLOMINE HCL 20 MG TABLET PO PRN (14:45)
[2017-04-29] MEDS ORDERED: METHOCARBAMOL 750 MG TABLET PO PRN (14:45)
--- NOTE | 2017-04-29 14:45 | NUR ---
Admission Note VS: HR:84 - BP: 107/72 - RR: 19 - Temp: 98.1 - Spo2: 100% - Pain: 0/10 Pt is a 52 year old Male admitted under the care of Dr. Bennett with Dr. Raygoza consulted for psychiatry. Pt is admitted for ETOH and Heroin detoxification, per pt. Pt's drug screen positive for Methamphetamine only. Pt states he has been using Heroin for the past 11 days. Pt denies any HI/SI or A/VH. Pt denies hospitalization in past 30 days, pt discharged from [facility] in 02/2017. Pt brought multiple medications from [facility], a Sober Living facility. Pt states he takes 200mg Seroquel, 300mg Wellbutrin and 80mg Prozac, along with a little orange pill. (see medication reconciliation for complete list of meds.) Pt reports PMH to include, anxiety, depression, schizophrenia and Hepatitis C, with past shoulder surgery. Pt's skin is intact and pt has multiple tattoos. Pt's initial COWS of 4 and CIWA of 2 were recorded at 1430. Pt presents intoxicated, but cooperative and A/O x4. Pt has a good sense of humor and seems to use it as a defense mechanism. Pt denies any current withdrawal symptoms, aside from some anxiety. Pt extremities WNL, pt's gait is steady. Pt reports history of detox at [facility] in 02/2017, along with a sober living program at [facility] until 11 days ago when he was asked to leave d/t some verbal aggression. Pt reports a PCP and psychiatrist both of whom are in [place]. Pt has been utilizing the doctors provided by his sober living program. Pt states he began using over 30 years ago and has experimented with "most everything." Pt had a seizure about 20 years ago from shooting cocaine. States he used to shoot meth until about 7 years ago. Pt has a 14 year history of being incarcerated a total of 4 times, for Felony Menacing. Pt had 49 days of sobriety until he was kicked out of his sober living facility 11 days ago. Pt is difficult to follow at times and can be tangential, with flight of ideas and some loose associations, probably related to his ETOH consumption. Pt is a 10 cigarette a day smoker. Orders were placed to start pt on 5 day Subutex and 5 day Ativan taper to begin 04/30/17. Pt has not requested any PRN's at this time. Pt has completed the admit process, being mostly cooperative, although somewhat challenging at times. Pt has been oriented to the unit rules and regulations, and to his room. Bed in low posittion, wheels locked, and call light within reach, side rails up x2. All safety measures in place per hospital policy. Will continue to monitor, support and encourage according to plan of care. Substance Abuse HX: ETOH, Heroin .. unclear how much or when last used.
[2017-04-29 14:47] LABS: *AMPHETAMINE, URINE POSITIVE (NEGATIVE); *BARBITURATE, URINE NEGATIVE (NEGATIVE); *CANNABINOID, URINE NEGATIVE (NEGATIVE); *COCCAINE, URINE NEGATIVE (NEGATIVE); *OPIATE, URINE NEGATIVE (NEGATIVE); *PHENCYCLIDINE SCREEN,URINE NEGATIVE (NEGATIVE)
[2017-04-29] MEDS ORDERED: METH-406 PO (15:03)
[2017-04-29] MEDS ORDERED: FAMO-132 PO (15:03)
[2017-04-29] MEDS ORDERED: BREX3TAB PO (15:03)
[2017-04-29] MEDS ORDERED: QUET200T PO (15:03)
[2017-04-29] MEDS ORDERED: FLUO40CA49 PO (15:03)
[2017-04-29] MEDS ORDERED: ACET-73 PO (15:03)
[2017-04-29] MEDS ORDERED: DICL75TA5 PO (15:03)
[2017-04-29] MEDS ORDERED: GABA600T2 PO (15:03)
[2017-04-29] MEDS ORDERED: HYDR50CA5 PO (15:03)
[2017-04-29] MEDS: GABAPENTIN 300 MG CAPSULE PO SCH ×2 (15:21→21:26)
[2017-04-29 16:32] LABS: BASOPHILS # (AUTO) 0.1 K/uL (0.0-8.0); BASOPHILS % (AUTO) 0.9 % (0.0-2.0); EOSINOPHILS # (AUTO) 0.2 K/uL (0.0-0.7); EOSINOPHILS % (AUTO) 2.2 % (0.0-7.0); HEMATOCRIT 42.2 % (40-50); LYMPHOCYTES # (AUTO) 2.3 K/UL (0.8-4.8); LYMPHOCYTES % (AUTO) 29.1 % (20.5-51.5); MEAN CORPUSCULAR HEMOGLOBIN 30.9 UUG (27.0-31.0); MEAN CORPUSCULAR HGB CONC 33 g/dL (32.0-37.0); MEAN CORPUSCULAR VOLUME 93.4 FL (82.0-92.0); MONOCYTES # (AUTO) 0.5 K/UL (0.1-1.30); MONOCYTES % (AUTO) 5.8 % (0.0-11.0); NEUTROPHILS # (AUTO) 4.9 K/UL (1.8-8.9); PLATELET COUNT (AUTO) 278 K/UL (150-450); RED BLOOD CELL COUNT(AUTO) 4.52 MIL/UL (4.7-6.1)
[2017-04-29 16:34] LABS: BILIRUBIN,TOTAL 0.5 mg/dL (0.2-1.0); CREATININE 1.1 mg/dL (0.6-1.3); MAGNESIUM 2.2 mg/dL (1.8-2.4); POTASSIUM 3.4 mmol/L (3.5-5.1); TOTAL PROTEIN, SERUM 7.4 g/dL (6.4-8.2)
[2017-04-29 17:37] VITALS: BP 106/56
--- NOTE | 2017-04-29 19:14 | NUR ---
End of Shift - 312 Report provided to night nurse with no further comments, questions or concerns voiced. Pt is 52 year old male admitted today for ETOH and Heroin use, although pt's DSRU was only positive for methamphetamines and ETOH. Pt has an allergy to pollen, is a full code and on a regular diet. Pt presents with PMH of anxiety, depression, schizophrenia and Hepatitis C. Pt is positive for a seizure episode about 20 years ago, while shooting up cocaine. Pt did not receive any PRN medication on this shift and will be started on 5 day Subutex and 5 day Ativan taper tomorrow. Pt's last COWS of 2 and CIWA of 2 were recorded at 1600. Pt is calm, cooperative and appropriate. Normal affect with congruent mood. Bed in low position, wheels locked and side rails up x2, call light within reach. All safety precautions in place per hospital policy.
[2017-04-29 20:00] VITALS: BP 129/84
--- NOTE | 2017-04-29 20:09 | NUR ---
START OF SHIFT NOTE Pt is a 52 y/o male admitted for Heroin and ETOH. Pt has an allergy to pollen and reported a PMH of anxiety, depression, schizophrenia, Hep C, and shoulder surgery. Pt was placed on a 5 day Ativan and Subutex taper starting tomorrow. Pt didn't receive any PRNS during the shift. Last COW: 2 and CIWA: 2 (1600). Pt is asleep in bed at this time. All safety measures in place. Assessment deferred until pt is awake. Will continue to monitor.
[2017-04-30] VITALS: BP 118/77
[2017-04-30 04:00] VITALS: BP 135/95
--- NOTE | 2017-04-30 07:13 | NUR ---
start of shift note: received pt from night manager nurse, pt is in stable condition no s/s of pain or discomfort, pt is admitted to [facility] for opiate/etoh/meth withdrawal/dependence. pt's last cows 3 and ciwa 2. pt will start dual taper today. will monitor pt for any changes or adverse to medications.
--- NOTE | 2017-04-30 07:46 | NUR ---
END OF SHIFT NOTE Pt is a 52 y/o male admitted for Heroin and ETOH. Pt has an allergy to pollen and reported a PMH of anxiety, depression, schizophrenia, Hep C, and shoulder surgery. Pt was placed on a 5 day Ativan and Subutex taper starting today. Pt didn't receive any PRNS during the shift. Last COW: 3 and CIWA: 2 (0400). Pt slept for a total of 10 hours. All safety measures in place. Assessment deferred until pt is awake. Will endorse to the oncoming nurse.
[2017-04-30] MEDS ORDERED: 5 DAY TAPER BUPRENORPHINE -SERENITY PROTOCOL SL PRN (09:00)
[2017-04-30] MEDS ORDERED: TUBERCULIN,PURIF.PROT.DERIV. 5 TU/0.1 ML TEST ID ONE (09:00)
[2017-04-30] MEDS ORDERED: BUPRENORPHINE HCL 2 MG TAB.SUBL SL SCH (09:00)
[2017-04-30] MEDS ORDERED: 5 DAY TAPER OF LORAZEPAM -SERENITY PROTOCOL PO PRN (09:00)
[2017-04-30] MEDS: THIAMINE HCL 100 MG TABLET PO SCH (09:31)
[2017-04-30] MEDS: DOCUSATE SODIUM 250 MG CAPSULE PO SCH (09:31)
[2017-04-30] MEDS: LORAZEPAM 1 MG TABLET PO SCH ×4 (09:31→21:44)
[2017-04-30] MEDS: FOLIC ACID 1 MG TABLET PO SCH (09:31)
[2017-04-30] MEDS: MULTIVITAMINS,THERAPEUTIC TABLET PO SCH (09:31)
[2017-04-30] MEDS: GABAPENTIN 300 MG CAPSULE PO SCH ×3 (09:32→21:44)
[2017-04-30 10:13] VITALS: BP 131/76
[2017-04-30 11:10] LABS: HEPATITIS B SURFACE AG Negative (Negative)
[2017-04-30] MEDS: IBUPROFEN 600 MG TABLET PO PRN ×2 (12:56→21:45)
[2017-04-30] MEDS ORDERED: POTASSIUM CHLORIDE 20 MEQ TAB.PRT.SR PO ONE (13:15)
[2017-04-30 13:59] VITALS: BP 125/78
--- NOTE | 2017-04-30 15:09 | NUR ---
Client was prompted by therapist to attend daily group sessions at 11am and 3:30pm. Client stated that he would try to attend.
[2017-04-30] MEDS ORDERED: QUETIAPINE FUMARATE 25 MG TABLET PO PRN (15:30)
[2017-04-30 17:32] VITALS: BP 123/82
--- NOTE | 2017-04-30 18:10 | NUR ---
end of shift note: pt is in stable condition no pain or discomfort noted, pt is admitted for opiate/etoh withdrawal/dependence. pt verbalized he last used opiates 3 days ago and so his subutex taper was discontinued. pt started ativan taper today and with a/r noted. pt received tb skin test. pts last ciwa 5. will endorse pt to form setter nurse.
--- NOTE | 2017-04-30 19:55 | NUR ---
START OF SHIFT Received report from day shift nurse. Pt attended a group meeting and returned to his room after. He is a 52 yo male admitted to [facility] on 04/29 for ETOH and heroin dependence. He is A&O x4 and ambulatory. Allergic to pollen, full code status, and on a regular diet. He has a PMH of hepatitis C, anxiety, depression, schizophrenia, and shoulder surgery. On admission he reported using beer 24 ounces per day, hard alcohol 750mL per day, and heroin 0.5grams per day. He started a 5 day Ativan taper today. Pt presents with restlessness, tremors that can be felt, right shoulder pain, and anxiety. Taper due tonight. Fall and seizure precautions in place. Bed is down with call light in reach.
[2017-04-30 20:00] VITALS: BP 129/89
--- NOTE | 2017-04-30 20:46 | NUR ---
PRN Motrin Pt reports right shoulder pain 8/. PRN Motrin administered.
[2017-04-30] MEDS: QUETIAPINE FUMARATE 200 MG TABLET PO SCH (21:45)
--- NOTE | 2017-04-30 21:46 | NUR ---
PRN Motrin reassessment PRN Motrin effective. Pt's pain level is reduced to 3/10 and is tolerable.
[2017-05-01] VITALS: BP 132/87
--- NOTE | 2017-05-01 | NUR ---
0000 COWS and CIWA deferred COWS and CIWA ordered Q4HWA. Pt is lying in bed resting with eyes closed. Vital signs obtained. Respirations even and unlabored. Safety measures in place.
[2017-05-01 04:00] VITALS: BP 128/82
--- NOTE | 2017-05-01 04:00 | NUR ---
0400 COWS and CIWA deferred. COWS and CIWA ordered Q4HWA. Pt is lying in bed resting with eyes closed. Vital signs obtained. Respirations even and unlabored. Safety measures in place.
--- NOTE | 2017-05-01 07:00 | NUR ---
Start of Shift Endorsement received from nightshift nurse. Pt is a 52 y/o male admitted for alcohol dependence. PT reports occasion use of heroin. Pt has been placed on a 5 day Ativan taper. Pt is moderately withdrawing at this time AEB CIWA 5. PT reports sleeping 8 hours. PT received PRN Motrin during nightshift. VS WNL. Full Code. PT is alert and oriented x4. Pt is in STABLE condition at this time. Remains compliant with medication and diet regimen. All needs have been met, All safety measures in place per hospital policy. Bed in lowest position, side rails up x2, call-light within reach. Will continue to monitor
--- NOTE | 2017-05-01 07:23 | NUR ---
END OF SHIFT Report provided to day shift nurse. Pt is lying in bed resting. He is a 52 yo male admitted to [facility] on 04/29 for ETOH and heroin dependence. He is A&O. Allergic to pollen, full code status, and on a regular diet. He has a PMH of hepatitis C, anxiety, depression, schizophrenia, and shoulder surgery. On admission he reported drinking beer 24 ounces per day, hard alcohol 750mL per day, and heroin 0.5grams per day. 5 day Ativan taper was started on 04/30. PRN Motrin administered for shoulder pain. Last COWS was 3 and CIWA 5 before bed. He drank 355mL and slept for 8 hours. Fall and seizure precautions in place. Bed is down with call light in reach.
[2017-05-01 08:00] VITALS: BP 119/79
[2017-05-01] MEDS: DOCUSATE SODIUM 250 MG CAPSULE PO SCH (08:42)
[2017-05-01] MEDS: LORAZEPAM 1 MG TABLET PO SCH ×3 (08:42→20:33)
[2017-05-01] MEDS: THIAMINE HCL 100 MG TABLET PO SCH (08:42)
[2017-05-01] MEDS: FLUOXETINE HCL 20 MG CAPSULE PO SCH (08:42)
[2017-05-01] MEDS: FOLIC ACID 1 MG TABLET PO SCH (08:42)
[2017-05-01] MEDS: MULTIVITAMINS,THERAPEUTIC TABLET PO SCH (08:43)
[2017-05-01] MEDS: GABAPENTIN 300 MG CAPSULE PO SCH ×3 (08:43→20:33)
[2017-05-01] MEDS ORDERED: BUPRENORPHINE HCL 2 MG TAB.SUBL SL SCH (09:00)
[2017-05-01 12:00] VITALS: BP 125/75
[2017-05-01 16:00] VITALS: BP 130/80
--- NOTE | 2017-05-01 18:36 | NUR ---
End of Shift Endorsement given to nightshift nurse. Pt is a 52 y/o male admitted for alcohol dependence. PT reports occasion use of heroin. Pt has been placed on a 5 day Ativan taper. Pt is moderately withdrawing at this time AEB CIWA 4. PT participated in groups and activities. PT received PRN Seroquel 50mg for agitation and confusion. Pt presented with several episodes of confusion and loose thought process. Pt has been re-oriented to where he is and to his room. Encouraged pt to drink more fluids and to get some rest. Intake: 1300ml, Void x2, BM x0. Pt participated in groups and activities. VS WNL. Full Code. PT is alert and oriented x4. Pt is in STABLE condition at this time. Remains compliant with medication and diet regimen. All needs have been met, All safety measures in place per hospital policy. Bed in lowest position, side rails up x2, call-light within reach. Will continue to monitor
--- NOTE | 2017-05-01 19:55 | NUR ---
START OF SHIFT Received report from day shift nurse. Pt attended a group meeting and returned to his room after. He is a 52 yo male admitted to [facility] on 04/29 for ETOH and heroin dependence. He is A&Ox2 and ambulatory. Allergic to pollen, full code status, and on a regular diet. He has a PMH of hepatitis C, anxiety, depression, schizophrenia, and right shoulder surgery. On admission he reported using beer 24 ounces per day, hard alcohol 750mL per day, and heroin 0.5grams per day. 5 day Ativan taper was started 04/30. Pt presents with flushed face, restlessness, and mild confusion but is easily redirected. Taper due tonight. Fall and seizure precautions in place. Bed is down with call light in reach.
[2017-05-01 20:00] VITALS: BP 133/84
[2017-05-01] MEDS: QUETIAPINE FUMARATE 200 MG TABLET PO SCH (20:33)
[2017-05-01] MEDS: IBUPROFEN 600 MG TABLET PO PRN (23:59)
[2017-05-02] VITALS: BP 131/75
--- NOTE | 2017-05-02 | NUR ---
PRN Motrin Pt reports right shoulder pain r/t past injury and surgery. PRN Motrin administered.
[2017-05-02 04:00] VITALS: BP 114/75
--- NOTE | 2017-05-02 04:00 | NUR ---
0400 CIWA deferred CIWA ordered Q4HWA. Pt is lying in bed resting with eyes closed. Respirations even and unlabored. Vital signs obtained. Safety measures in place.
--- NOTE | 2017-05-02 07:07 | NUR ---
END OF SHIFT Report provided to day shift nurse. Pt is lying in bed resting. He is a 52 yo male [address] to [facility] on 04/29 for ETOH and heroin dependence. He is A&O and ambulatory. Allergic to pollen, full code status, and on a regular diet. He has a PMH of hepatitis C, suicide attempt in 2000, anxiety, depression, schizophrenia, and shoulder surgery. Diagnosed with bipolar on this admission. History of substance use includes beer 24 ounces per day, hard alcohol 750mL per day, and heroin 0.5grams per day. 5 day Ativan taper was started 04/30. Pt had some mild confusion and paranoia before bed. He believed that people were taking his belongings that were not even on the unit. He was able to be redirected. PRN Motrin administered for shoulder pain. Vital signs stable. Last COWS was 3 and CIWA was 5. He drank 850mL and slept for 6 hours. Fall and seizure precautions in place. Bed is down with call light in reach.
--- NOTE | 2017-05-02 07:49 | NUR ---
START OF SHIFT NOTE: Received report from rn night nurse. Pt is a 52 [address] [facility] on 04/29 for ETOH and heroin dependence. Pt is on a 5 day Ativan taper. Tolerating well. Pt is alert and oriented X4. Color good, skin warm and dry. Respirations even and unlabored. Resting in bed. Safety precautions observed. Call light within reach. Will continue to monitor.
[2017-05-02 08:00] VITALS: BP 114/75
[2017-05-02 08:17] LABS: BASOPHILS # (AUTO) 0.1 K/uL (0.0-8.0); BASOPHILS % (AUTO) 0.7 % (0.0-2.0); EOSINOPHILS # (AUTO) 0.5 K/uL (0.0-0.7); HEMATOCRIT 39.8 % (40-50); HEMOGLOBIN 13.4 G/DL (14.0-18.0); LYMPHOCYTES # (AUTO) 2.1 K/UL (0.8-4.8); LYMPHOCYTES % (AUTO) 27.4 % (20.5-51.5); MEAN CORPUSCULAR HEMOGLOBIN 31.9 UUG (27.0-31.0); MEAN CORPUSCULAR HGB CONC 34 g/dL (32.0-37.0); MONOCYTES # (AUTO) 0.4 K/UL (0.1-1.30); MONOCYTES % (AUTO) 5.2 % (0.0-11.0); NEUTROPHILS # (AUTO) 4.7 K/UL (1.8-8.9); NEUTROPHILS % (AUTO) 60.7 % (38.5-71.5); PLATELET COUNT (AUTO) 243 K/UL (150-450); RED BLOOD CELL COUNT(AUTO) 4.18 MIL/UL (4.7-6.1); WHITE BLOOD COUNT (AUTO) 7.8 K/UL (4.0-11.2)
[2017-05-02 08:48] LABS: CREATININE 0.9 mg/dL (0.6-1.3); MAGNESIUM 2.2 mg/dL (1.8-2.4); PHOSPHOROUS 3.8 mg/dL (2.5-4.9); POTASSIUM 4.2 mmol/L (3.5-5.1)
[2017-05-02] MEDS: FLUOXETINE HCL 20 MG CAPSULE PO SCH (08:59)
[2017-05-02] MEDS: FOLIC ACID 1 MG TABLET PO SCH (08:59)
[2017-05-02] MEDS: THIAMINE HCL 100 MG TABLET PO SCH (08:59)
[2017-05-02] MEDS: GABAPENTIN 300 MG CAPSULE PO SCH ×3 (08:59→22:11)
[2017-05-02] MEDS: MULTIVITAMINS,THERAPEUTIC TABLET PO SCH (08:59)
[2017-05-02] MEDS: LORAZEPAM 1 MG TABLET PO SCH ×4 (08:59→22:10)
[2017-05-02] MEDS: DOCUSATE SODIUM 250 MG CAPSULE PO SCH (08:59)
[2017-05-02] MEDS ORDERED: BUPRENORPHINE HCL 2 MG TAB.SUBL SL SCH ×2 (09:00→15:00)
--- NOTE | 2017-05-02 09:30 | NUR ---
VSS CIWA 5. C/o anxiety and sweating.
--- NOTE | 2017-05-02 13:00 | NUR ---
VSS CIWA 3. Pt very drowsy and sleeping most of the day.
[2017-05-02 13:39] VITALS: BP 121/81
--- NOTE | 2017-05-02 16:21 | NUR ---
Therapist prompted client to attend daily group sessions. Client stated that he would try to attend.
--- NOTE | 2017-05-02 17:13 | NUR ---
Pt in a deep sleep. Ativan 1mg held.
[2017-05-02 17:18] VITALS: BP 121/81
--- NOTE | 2017-05-02 18:43 | NUR ---
END OF SHIFT NOTE: Report given to consumer insight manager nurse. Pt is a 52 yo male admitted to [facility] on 04/29 for ETOH and heroin dependence. Pt is on a 5 day Ativan taper. Tolerating well. Pt is alert and oriented X4. Color good, skin warm and dry. Respirations even and unlabored. Vital signs have remained stable throughout shift. Last CIWA @ 3 . 1700 Ativan held due to patient snoring and in a deep sleep. Resting in bed. Safety precautions observed. Call light within reach.
--- NOTE | 2017-05-02 19:30 | NUR ---
Start of shift notes: Received patient in bed awake, alert, and oriented x4. Behavior; calm and cooperative with care. Patient complained of hearing voices. Stated " They are telling me to leave." Also, stated "I'm seeing mean people cutting people's head." Safety precaution maintained. Will continue to monitor patient behavior and medication effectiveness.
[2017-05-02 20:00] VITALS: BP 138/86
[2017-05-02] MEDS: QUETIAPINE FUMARATE 200 MG TABLET PO SCH (22:10)
[2017-05-03 00:01] VITALS: BP 109/63
--- NOTE | 2017-05-03 00:01 | NUR ---
Unable to assess patient COWS and CIWA at this time. Patient asleep and refused to cooperate when aroused.
[2017-05-03 04:00] VITALS: BP 125/74
--- NOTE | 2017-05-03 04:44 | NUR ---
Patient asleep. Unable to assess COWS and CIWA. Respiration even and unlabored. No signs of distress. Unable to aroused. Will continue to monitor behavior and medication effectiveness.
--- NOTE | 2017-05-03 07:08 | NUR ---
Patient alert, and oriented x4. Behavior; calm and cooperative with care. Slept 10 hours and 45 minutes Will continue to monitor patient behavior and medication effectiveness. No behavior issues.
--- NOTE | 2017-05-03 07:28 | NUR ---
START OF SHIFT NOTE: Received report from palm and back forger nurse. Pt is a 52 yo male admitted to [facility] on 04/29/17 for ETOH and heroin dependence. Pt is on a 5 day Ativan taper. Tolerating well. Pt is alert and oriented X4. Color good, skin warm and dry. Respirations even and unlabored. Resting in bed. Safety precautions observed. Call light within reach. Will continue to monitor.
[2017-05-03] MEDS: MULTIVITAMINS,THERAPEUTIC TABLET PO SCH (08:38)
[2017-05-03] MEDS: DOCUSATE SODIUM 250 MG CAPSULE PO SCH (08:38)
[2017-05-03] MEDS: FOLIC ACID 1 MG TABLET PO SCH (08:39)
[2017-05-03] MEDS: THIAMINE HCL 100 MG TABLET PO SCH (08:39)
[2017-05-03] MEDS: FLUOXETINE HCL 20 MG CAPSULE PO SCH (08:39)
[2017-05-03] MEDS: LORAZEPAM 1 MG TABLET PO SCH ×3 (08:39→20:42)
[2017-05-03] MEDS: GABAPENTIN 300 MG CAPSULE PO SCH ×3 (08:39→20:42)
[2017-05-03] MEDS ORDERED: BUPRENORPHINE HCL 2 MG TAB.SUBL SL SCH (09:00)
[2017-05-03 09:44] VITALS: BP 125/74
[2017-05-03 12:53] VITALS: BP 137/82
[2017-05-03] MEDS ORDERED: Medication Not On Formulary EA (Gabapentin 1 TAB) PO SCH (17:00)
[2017-05-03 17:21] VITALS: BP 120/87
--- NOTE | 2017-05-03 18:42 | NUR ---
END OF SHIFT NOTE: Report given to warehouse shift supervisor nurse. Pt is a 52 yo male admitted to [facility] on 04/29 for ETOH and heroin dependence. Pt is on a 5 day Ativan taper. Tolerating well. Pt is alert and oriented X4. Color good, skin warm and dry. Respirations even and unlabored. Vital signs have remained stable throughout shift. Last CIWA 5 @ 1700. Resting in bed. Safety precautions observed. Call light within reach
[2017-05-03 20:00] VITALS: BP 124/78
--- NOTE | 2017-05-03 20:00 | NUR ---
Start of Shift Pt is a 52 year old male admitted or EOTH/heroin dependence, placed on Ativan taper, Subutex taper d/c'd. PMH: Anxiety, depression, schizophrenia, Hepatitis C, right shoulder surgery and suicide attempt 2000. Pt reports allergies to pollen, fall/seizure precautions - reports hx of seizure 20 years ago d/t IV cocaine and full code. Upon assessment, pt presents with hot/cold flashes, chills, anxiety, skin flushed, noted with moderate sweat, respirations even/unlabored, respirations even/unlabored, denies SOB/chest pain, denies n/v/d, bowel sounds active x4, abdomen soft. Safety measures in place, call light within reach, side rails up x2, bed locked and in low position. Will continue to monitor.
[2017-05-03] MEDS: QUETIAPINE FUMARATE 200 MG TABLET PO SCH (20:42)
[2017-05-04] VITALS: BP 130/85
--- NOTE | 2017-05-04 | NUR ---
Vital Signs BP 130/85, pulse 77, resp 14, SpO2 97% room air, temp 98.2, no reports of pain 0/10 CIWA deferred d/t pt sleeping, to assess while pt is awake as ordered. Safety measures in place, will continue to monitor.
[2017-05-04 04:00] VITALS: BP 114/76
--- NOTE | 2017-05-04 04:00 | NUR ---
Vital Signs BP 114/76, pulse 66, resp 16, SpO2 98% room air, temp 98.2, no reports of pain 0/10 CIWA deferred d/t pt sleeping, to assess while pt is awake as ordered. Safety measures in place, will continue to monitor.
--- NOTE | 2017-05-04 07:00 | NUR ---
End of Shift Pt is a 52 year old male admitted or EOTH/heroin dependence, placed on Ativan taper, Subutex taper d/c'd. PMH: Anxiety, depression, schizophrenia, Hepatitis C, right shoulder surgery and suicide attempt 2000. Pt reports allergies to pollen, fall/seizure precautions - reports hx of seizure 20 years ago d/t IV cocaine and full code. During shift, pt presented with hot/cold flashes, chills, anxiety, skin flushed, noted with moderate sweat - scheduled taper medications administered, effective in management of s/s of withdrawal as reported per pt, CIWA 4. No PRN medications administered. Pt slept for 9 hours, intake of 1500 ml PO, voids x2 and stool x0 . Safety measures in place, call light within reach, side rails up x2, bed locked and in low position. Endorsed to day shift nurse.
--- NOTE | 2017-05-04 07:05 | NUR ---
Start of Shift Endorsement received from nightshift nurse. Pt is a 52 y/o male admitted for alcohol dependence. PT reports occasion use of heroin. Pt has been placed on a 5 day Ativan taper. Pt is moderately withdrawing at this time AEB CIWA 4. PT reports sleeping 9 hours. PT did not receive any PRN medications. VS WNL. Full Code. PT is alert and oriented x4. Pt is in STABLE condition at this time. Remains compliant with medication and diet regimen. All needs have been met, All safety measures in place per hospital policy. Bed in lowest position, side rails up x2, call-light within reach. Will continue to monitor
[2017-05-04] MEDS: DOCUSATE SODIUM 250 MG CAPSULE PO SCH (08:24)
[2017-05-04] MEDS: MULTIVITAMINS,THERAPEUTIC TABLET PO SCH (08:25)
[2017-05-04] MEDS: LORAZEPAM 1 MG TABLET PO SCH ×2 (08:25→20:54)
[2017-05-04] MEDS: FOLIC ACID 1 MG TABLET PO SCH (08:25)
[2017-05-04] MEDS: FLUOXETINE HCL 20 MG CAPSULE PO SCH (08:25)
[2017-05-04] MEDS: THIAMINE HCL 100 MG TABLET PO SCH (08:25)
[2017-05-04] MEDS: GABAPENTIN 300 MG CAPSULE PO SCH ×3 (08:25→20:49)
[2017-05-04 09:00] VITALS: BP 110/77
[2017-05-04] MEDS ORDERED: BUPRENORPHINE HCL 2 MG TAB.SUBL SL SCH (09:00)
[2017-05-04 12:00] VITALS: BP 111/66
--- NOTE | 2017-05-04 13:10 | NUR ---
Transfer of Care Endorsed pt to [facility].
--- NOTE | 2017-05-04 13:10 | NUR ---
RECEIVED PT FROM DAY SHIFT NURSE JORDIN PT IS IN STABLE CONDITION AT THIS TIME.
[2017-05-04 16:44] VITALS: BP 149/86
[2017-05-04] MEDS: FAMOTIDINE 20 MG TABLET PO SCH (16:51)
--- NOTE | 2017-05-04 18:55 | NUR ---
END OF SHIFT NOTE: PT IS IN STABLE CONDITION AT THIS TIME, PT IS ADMITTED TO [facility] FOR ETOH/METH/OPIATE WITHDRAWAL/DEPENDENCE. PT TOLERATING TAPER WELL NO A/R NOTED. PT'S LAST CIWA 1. PT COMPLIANT WITH PLAN OF CARE. PT AT THIS TIME WITHOUT PAIN OR DISCOMFORT.
[2017-05-04 20:00] VITALS: BP 138/85
--- NOTE | 2017-05-04 20:00 | NUR ---
Start of Shift Pt is a 52 year old male admitted or EOTH/heroin dependence, placed on Ativan taper, Subutex taper d/c'd. PMH: Anxiety, depression, schizophrenia, Hepatitis C, right shoulder surgery and suicide attempt 2000. Pt reports allergies to pollen, fall/seizure precautions - reports hx of seizure 20 years ago d/t IV cocaine and full code. Upon assessment, pt presents with mild chills and lower back ache, skin flushed, noted with moderate sweat, respirations even/unlabored, respirations even/unlabored, denies SOB/chest pain, denies n/v/d, bowel sounds active x4, abdomen soft. Safety measures in place, call light within reach, side rails up x2, bed locked and in low position. Will continue to monitor
[2017-05-04] MEDS: QUETIAPINE FUMARATE 200 MG TABLET PO SCH (20:49)
[2017-05-05] VITALS: BP 110/71
--- NOTE | 2017-05-05 | NUR ---
Vital Signs BP 110/71, pulse 79, resp 16, SpO2 97% room air, temp 97.7, no reports of pain 0/10 COWS/CIWA deferred d/t pt sleeping, to assess while pt is awake as ordered. Safety measures in place. Will continue to monitor.
[2017-05-05 04:00] VITALS: BP 109/74
--- NOTE | 2017-05-05 04:00 | NUR ---
Vital Signs BP 109/74, pulse 66, resp 16, SpO2 97% room air, temp 97.6, no reports of pain 0/10 COWS/CIWA deferred d/t pt sleeping, to assess while pt is awake as ordered. Safety measures in place. Will continue to monitor.
--- NOTE | 2017-05-05 07:00 | NUR ---
End of Shift Pt is a 52 year old male admitted or EOTH/heroin dependence, placed on Ativan taper, Subutex taper d/c'd. PMH: Anxiety, depression, schizophrenia, Hepatitis C, right shoulder surgery and suicide attempt 2000. Pt reports allergies to pollen, fall/seizure precautions - reports hx of seizure 20 years ago d/t IV cocaine and full code. During shift, pt presented with mild chills and lower back ache, skin flushed, noted with moderate sweat scheduled taper medications administered, effective in management of s/s of withdrawal as reported per pt, CIWA 2. No PRN medications administered during shift. Pt slept for 7 hours, intake of 1245 ml PO, voids x1 and stool x0. Safety measures in place, call light within reach, side rails up x2, bed locked and in low position. Endorsed to day shift nurse.
--- NOTE | 2017-05-05 07:42 | NUR ---
Start of Shift Notes: Received patient in his room. Alert and verbally responsive. Oriented x 4 Able to make his needs known. Respirations even and unlabored. No SOB noted. Skin warm and dry to touch. Abdomen soft and non-distended with (+) BS in all 4 quadrants. No complains of N/V/D or constipation noted. Ambulatory ad mitesh with steady gait. Patient is a 52 year old male admitted for opiate and ETOH dependence who was placed on 5-day Ativan and 5-day Subutex, however 5-day Subutex has been discontinued. Has past medical hx of Hep C, anxiety, depression, suicide attempt in 2000 and right shoulder surgery. Prior to admission, patient was using 0.5 grams of Heroin, and 24 oz of beer and 7500cc of hard liquor. Allergic to Pollen. FULL CODE. Regular diet. On fall and seizure precautions. Educated patient on his current plan of care for the day and his medication regimen. Encouraged oral fluid intake and encouraged group participation to learn new skills to prevent relapse. Will continue to monitor.
[2017-05-05 08:00] VITALS: BP 120/75
[2017-05-05] MEDS: THIAMINE HCL 100 MG TABLET PO SCH (08:50)
[2017-05-05] MEDS: FOLIC ACID 1 MG TABLET PO SCH (08:50)
[2017-05-05] MEDS: FAMOTIDINE 20 MG TABLET PO SCH ×2 (08:50→16:41)
[2017-05-05] MEDS: MULTIVITAMINS,THERAPEUTIC TABLET PO SCH (08:50)
[2017-05-05] MEDS: GABAPENTIN 300 MG CAPSULE PO SCH ×3 (08:50→20:05)
[2017-05-05] MEDS: FLUOXETINE HCL 20 MG CAPSULE PO SCH (08:51)
[2017-05-05] MEDS: DOCUSATE SODIUM 250 MG CAPSULE PO SCH (09:00)
--- NOTE | 2017-05-05 09:16 | NUR ---
DSS 250mg PO not administered: Patient refused DSS 250 mg PO at 0900. Patient states that he does not need it. Offered x3 and educated on the risk and benefits but patient still refused.
[2017-05-05] MEDS ORDERED: IBUP-1955 PO (11:08)
[2017-05-05] MEDS ORDERED: GABA-534 PO (11:08)
[2017-05-05 12:00] VITALS: BP 121/81
[2017-05-05 14:46] LABS: *AMPHETAMINE, URINE NEGATIVE (NEGATIVE); *BARBITURATE, URINE NEGATIVE (NEGATIVE); *CANNABINOID, URINE NEGATIVE (NEGATIVE); *COCCAINE, URINE NEGATIVE (NEGATIVE); *OPIATE, URINE NEGATIVE (NEGATIVE); *PHENCYCLIDINE SCREEN,URINE NEGATIVE (NEGATIVE)
[2017-05-05 16:00] VITALS: BP 130/93
--- NOTE | 2017-05-05 19:02 | NUR ---
End of Shift Notes: Patient completed his 5-day Ativan taper as ordered .No adverse reactions noted. VS monitored closely q 4 hours. No significant abnormalities noted. Withdrawal symptoms were closely monitored. Initial COWS 2, CIWA 1. Patient presented with anxiety. Participated in group and therapy sessions. Last COWS 1/CIWA 1. Patient with discharge plans for tomorrow. UDS in and resulted. Compliant with care. Safety precautions in place. All needs met and attended. Will continue to monitor closely.
[2017-05-05 20:00] VITALS: BP 134/95
--- NOTE | 2017-05-05 20:00 | NUR ---
Start of Shift Pt is a 52 year old male admitted or EOTH/heroin dependence, placed on Ativan taper, Subutex taper d/c'd. taper completed. PMH: Anxiety, depression, schizophrenia, Hepatitis C, right shoulder surgery and suicide attempt 2000. Pt reports allergies to pollen, fall/seizure precautions - reports hx of seizure 20 years ago d/t IV cocaine and full code. Upon assessment, pt presents with lower back ache, skin flushed, respirations even/unlabored, respirations even/unlabored, denies SOB/chest pain, denies n/v/d, bowel sounds active x4, abdomen soft. Pt is scheduled for discharge tomorrow. Safety measures in place, call light within reach, side rails up x2, bed locked and in low position. Will continue to monitor
[2017-05-05] MEDS: QUETIAPINE FUMARATE 200 MG TABLET PO SCH (20:05)
--- NOTE | 2017-05-06 | NUR ---
Pt refused to be woken up for 0000 Vital signs COWS/CIWA deferred d/t pt sleeping to assess while pt is awake as ordered Safety measures in place, will continue to monitor.
--- NOTE | 2017-05-06 04:00 | NUR ---
Pt refused to be woken up for 0400 Vital signs COWS/CIWA deferred d/t pt sleeping to assess while pt is awake as ordered Safety measures in place, will continue to monitor.
--- NOTE | 2017-05-06 07:00 | NUR ---
End of Shift Pt is a 52 year old male admitted or EOTH/heroin dependence, placed on Ativan taper, Subutex taper d/c'd. taper completed. PMH: Anxiety, depression, schizophrenia, Hepatitis C, right shoulder surgery and suicide attempt 2000. Pt reports allergies to pollen, fall/seizure precautions - reports hx of seizure 20 years ago d/t IV cocaine and full code. During shift, pt presented with lower back ache, skin flushed scheduled medications administered. No s/s of acute withdrawal noted, COWS 1 and CIWA 1. Pt is scheduled for discharge today. No PRN medications administered. Pt slept for 7 hours, intake of 1250 ml PO, voids x1 and stool x0. Safety measures in place, call light within reach, side rails up x2, bed locked and in low position. Endorsed to day shift nurse.
--- NOTE | 2017-05-06 07:33 | NUR ---
START OF SHIFT NOTE: Received report from mine shifter nurse. Pt is a 52 year old male admitted or EOTH/heroin dependence, placed on Ativan taper, Subutex taper d/c'd. taper completed. To be discharged this AM. Pt is alert and oriented X4. Color good, skin warm and dry. Respirations even and unlabored. Safety precautions observed. Call light within reach.
[2017-05-06] MEDS: MULTIVITAMINS,THERAPEUTIC TABLET PO SCH (08:01)
[2017-05-06] MEDS: FLUOXETINE HCL 20 MG CAPSULE PO SCH (08:01)
[2017-05-06] MEDS: THIAMINE HCL 100 MG TABLET PO SCH (08:01)
[2017-05-06] MEDS: FAMOTIDINE 20 MG TABLET PO SCH (08:01)
[2017-05-06] MEDS: GABAPENTIN 300 MG CAPSULE PO SCH (08:02)
[2017-05-06] MEDS: FOLIC ACID 1 MG TABLET PO SCH (08:02)
[2017-05-06] MEDS: DOCUSATE SODIUM 250 MG CAPSULE PO SCH (08:02)
[2017-05-06 08:08] VITALS: BP 124/74
--- NOTE | 2017-05-06 08:32 | NUR ---
AM meds given. VSS Discharge papers and medication bag signed.
--- NOTE | 2017-05-06 09:30 | NUR ---
Pt discharged in stable condition with all valuables, belongings and home medications. Denies HI/SI. To [facility] via [employer] private car.
== END 2017-05-06 09:30 | disposition other institution (70) | DRG 895 ==
LOC: SRC 12:17
PROVIDERS: ADMIT Internal Medicine; ATTEND Internal Medicine
PROC: HZ2ZZZZ Detoxification Services for Substance Abuse Treatment (ICD-10-PCS; principal; 2017-04-29)
PROC: HZ31ZZZ Individual Counseling for Substance Abuse Treatment, Behavioral (ICD-10-PCS; 2017-04-30)
PROC: HZ41ZZZ Group Counseling for Substance Abuse Treatment, Behavioral (ICD-10-PCS; 2017-05-03)
DX: F10.230 Alcohol dependence with withdrawal, uncomplicated (principal); F31.5 Bipolar disorder, current episode depressed, severe, with psychotic features; F10.220 Alcohol dependence with intoxication, uncomplicated; K70.30 Alcoholic cirrhosis of liver without ascites; Y90.6 Blood alcohol level of 120-199 mg/100 ml; Z59.0 Homelessness; F15.10 Other stimulant abuse, uncomplicated; Z81.3 Family history of other psychoactive substance abuse and dependence; E87.6 Hypokalemia; B19.20 Unspecified viral hepatitis C without hepatic coma; F17.210 Nicotine dependence, cigarettes, uncomplicated; F11.23 Opioid dependence with withdrawal; F90.9 Attention-deficit hyperactivity disorder, unspecified type; F41.9 Anxiety disorder, unspecified; Z79.899 Other long term (current) drug therapy; Z87.828 Personal history of other (healed) physical injury and trauma
CPT/HCPCS: 36415; 70030-TC; 80307; 80324; 83690; 83735; 84100; 85025; 86580; 86592; 86705; 86803; 87340; 87806; A4663; G0480; J3411